=== PATIENT | female | born 1970 | race Caucasian/White ===

== ENCOUNTER 2020-07-12 09:54 | Observation (INO) ==
[2020-07-12] MEDS ORDERED: HYDROmorphone HCL 1 MG/ML DISP.SYRIN IV ONE ×2 (10:26→12:00)
[2020-07-12] MEDS ORDERED: diphenhydrAMINE HCL 50 MG/ML VIAL IV ONE (10:26)
[2020-07-12] MEDS ORDERED: METOCLOPRAMIDE HCL 5 MG/ML VIAL IV ONE (10:26)
--- NOTE | 2020-07-12 10:41 | ERNOTE ---
Upper Extremity HPI - Narrative Date of Service: 07/12/20 - General Extremities Pain Location: arm: right Time Seen by Provider: 07/12/20 10:13 Source: patient Exam Limitations: no limitations - Immun/Allergies/Home Medications Immunizations: IMMUNIZATION HX Immunizations Up to Date Yes History of Influenza Vaccine No Hx Pneumococcal Vaccination No Allergies/Adverse Reactions: Allergies Allergy/AdvReac Type Severity Reaction Status Date / Time ondansetron [From Zofran] Allergy Intermediate Hives Verified 07/12/20 10:04 morphine AdvReac Unknown Verified 07/12/20 10:04 Home Medications: HOME MEDICATIONS Aspirin [Aspirin EC] 81 mg PO DAILY 07/12/20 [Last Taken Unknown] HYDROcodone/ACETAMINOPHEN [[place] 10-325 Tablet] 1 ea PO Q4H PRN 07/12/20 [Last Taken Unknown] Lisinopril [Zestril] 10 mg PO DAILY 07/12/20 [Last Taken Unknown] glipiZIDE [Glipizide] 10 mg PO BID 07/12/20 [Last Taken Unknown] metFORMIN HCL [Metformin HCl] 1,000 mg PO BID 07/12/20 [Last Taken Unknown] - Pain Score Pain Score #1 Pain Score: 10 - History of Present Illness Narrative: The patient is a 49 year old female who presents for right upper extremity pain which has been present for several years but considerable worse over the past 2 weeks. There are associated symptoms of increased swelling and enlarged nodes. The patient reports pain to right arm, 10/10. There are no alleviating factors. There are aggravating factors of palpation and movement to right arm. Previous treatments have included: none. The past medical history includes: HTN, DM and breast cancer with metastatic disease and chronic lymphedema. The social history is positive for former smoker. The patient has had no known ill contacts. Patient states she has chronic lymphedema to right upper extremity and use a extremity pump to aid with swelling. Patient states that over the past 2 weeks her pain has been unmanaged with her chronic pain medication as well as having increased edema despite interventions. Patient has been here for over a month visiting her son who had a child. Patient states she has been having telemedicine visits with her PCP back home but has been unable to get back home due to her son's work schedule. Review of Systems - Review of Systems Constitutional: Present: chills, fatigue. Absent: fever EYE: Present: no symptoms reported ENT: Present: no symptoms reported. Absent: ear pain, nasal drainage, sore throat Respiratory: Present: shortness of breath, cough Cardiology: Present: no symptoms reported. Absent: chest pain Gastrointestinal/Abdominal: Present: nausea, eating less, drinking less. Absent: vomiting, diarrhea Genitourinary: Present: no symptoms reported. Absent: dysuria, decreased urinary output Musculoskeletal: Present: joint pain Skin: Present: no symptoms reported. Absent: rash Neurological: Present: weakness. Absent: headache, dizziness/light-headedness All Other Systems: All systems neg except as marked Medical History (Last Reviewed 07/12/20 @ 10:34 by WALLY Vallejo) Breast cancer Breast cancer metastasized to bone Diabetes mellitus Hypertension Surgical History: Surgical History (Last Reviewed 07/12/20 @ 10:34 by WALLY Vallejo) H/O bilateral mastectomy History of tonsillectomy and adenoidectomy Hx of cholecystectomy Family History: Family History (Last Reviewed 07/12/20 @ 10:34 by WALLY Vallejo) Father Hypertension Liver failure Mother Hypertension Social History: (Last Reviewed 07/12/20 @ 10:34 by WALLY Vallejo) Tobacco: Smoking Status: Former smoker Alcohol: alcohol intake: never Substance Use: substance use type: does not use Physical Exam - Physical Exam General Appearance: Present: wd/wn, alert, moderate distress Head Exam: Present: normal inspection, no evidence of injury Eye Exam: Normal inspection: bilateral Neck: Present: lymphadenopathy (R) - enlarged lymph nodes present to right anterior posterior chain and supraclavicular, firm, tender, tender lateral. Absent: lymphadenopathy (L) Respiratory: Present: no respiratory distress, normal breath sounds, no accessory muscle use, lungs clear Cardiovascular/Chest: Present: no murmur, normal peripheral pulses, tachycardia Peripheral Pulses: N=norm/S=strong/W=weak/B=bound/A=absent: Radial (R): Normal - right brachial normal Extremity Exam: Present: decreased range of motion, extremity edema - diffuse edema noted to right upper extremity Neurological Exam: Present: alert, oriented, normal mood/affect, motor weakness - right arm grasp and flexion, patient states is worse then normal but has difficulty associated with pain. 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 [facility] consulted for treatment plan. 07/12/20 12:45 Spoke with , [facility], will consult with vascular for direction of care. 07/12/20 13:11 states that after discussion of case with vascular they do not recommend surgical intervention but just anticoagulation therapy and pain management. It was reviewed with regarding weakness to RUE, exam findings as well as patient history of imaging studies. Discussed plan of care with patient and agrees to admission for management of pain as well as initiation of anticoagulation therapy. Case was reviewed with and requests to proceed with Lovenox Q12 hour dosing. Reviewed concern for metastatic progression due to findings of pleural effusion on xray. Patient is to follow up with her oncologist upon returning home. Also reviewed hyperglycemia but patient did not take am meds today due to nausea associated with pain. - Results and Orders Patient's Lab Results:: I have reviewed the patient's lab results. - Vital Signs Patient's Vital Signs:: I have reviewed the patient's vital signs. Vital Signs: Vital Signs 07/12/20 09:56 Temperature 36.1 C Pulse Rate 113 H Respiratory Rate 12 Blood Pressure 151/91 H O2 Sat by Pulse Oximetry 98 - X-Ray X-Ray #1 X-Ray: chest Interpretation: Reviewed by me X-ray Comments: IMPRESSION: 1. MILD RIGHT-SIDED VOLUME LOSS ASSOCIATED WITH SUBSEGMENTAL INFILTRATE/ATELECTASIS IN THE RIGHT LUNG BASE AND TRACE RIGHT-SIDED PLEURAL EFFUSION. 2. MULTIPLE POSTOPERATIVE CLIPS ALONG THE RIGHT CHEST WALL, CORRELATION NECESSARY. Electronically signed by Martinez Braxton MD. - CT/Ultrasound CT/Ultrasound Narrative: IMPRESSION: 1. Ultrasound evaluation of right upper extremity does show the presence of venous thrombosis throughout the visualized right internal jugular vein. 2. The right subclavian vein is small caliber but appears patent with color flow and Doppler flow. 3. Remaining venous structures within the right upper extremity appear patent without other areas of venous thrombosis. 4. Multiple enlarged and somewhat suspicious lymph nodes seen within the base of the neck on the right. Electronically signed by Martinez Braxton MD. - Progress/Reassessment Chief Complaint: Upper Extremity Injury/Problem Progress:: Improved Departure Clinical Impression: Lymphedema Internal jugular vein thrombosis Qualifiers: Laterality: right Qualified Code(s): I82.C11 - Acute embolism and thrombosis of right internal jugular vein Diabetes mellitus Qualifiers: Diabetes mellitus type: type 2 Diabetes mellitus predatory animal exterminator insulin use: without predatory animal exterminator use Diabetes mellitus complication status: with hyperglycemia Qualified Code(s): E11.65 - Type 2 diabetes mellitus with hyperglycemia Breast cancer Qualifiers: Breast location: unspecified site of breast Estrogen receptor status: unspecified Patient sex: female Laterality: bilateral Qualified Code(s): C50.911 - Malignant neoplasm of unspecified site of right female breast; C50.912 - Malignant neoplasm of unspecified site of left female breast - Departure Disposition: Still a patient Condition: Stable
[2020-07-12 10:53] LABS: Hematocrit 35.8 % (37.0-47.0); Hemoglobin 11.4 gm/dL (12.5-16.0); Mean Cell Volume 84.8 fl (78-100); Mean Corpuscular Hgb Conc 31.8 g/dl (32-36); Mean Platelet Volume 9.1 fl (8-12.5); Neutrophil # 6.7 K/mm3 (1.3-6.0); Neutrophil % 71.4 % (42-75.0); Platelet Count 337 K/mm3 (150-450); Red Blood Count 4.22 M/mm3 (4.2-5.4); Red Cell Distribution Width 13.8 % (11.5-14.0); White Blood Count 9.4 K/mm3 (4.0-10.5)
[2020-07-12 11:06] LABS: Albumin * 3.6 gm/dl (3.4-5.0); Anion Gap 16.8 mmol/L (6.8-13.8); BUN/Creatinine Ratio 18.9 (9.0-21.6); Bilirubin, Total 0.4 mg/dL (0.0-1.1); Ca. Corrected For Albumin 10.3 mg/dL (8.4-10.2); Calcium * 10.3 mg/dL (7.9-10.9); Carbon Dioxide 25.3 mmol/L (24-32.6); Potassium 4.1 mmol/L (3.4-4.6); Total Protein 8.2 gm/dL (6.2-8.2)
[2020-07-12] MEDS ORDERED: NORMAL SALINE 500 ML IV PRN (11:17)
[2020-07-12 12:39] LABS: Prothrombin Time (Patient) 10.3 Seconds (9.1-10.7)
[2020-07-12 12:56] LABS: INR 1.04 INR (0.92-1.08)
[2020-07-12] MEDS ORDERED: ENOXAPARIN SODIUM 100 MG/ML SYRG SC ONE (13:07)
[2020-07-12] MEDS ORDERED: glipiZIDE 10 MG TABLET PO ONE (13:26)
[2020-07-12] MEDS ORDERED: ACETAMINOPHEN 325 MG TABLET PO PRN (13:32)
[2020-07-12] MEDS ORDERED: HYDROmorphone HCL 1 MG/ML DISP.SYRIN IV PRN ×2 (13:34→17:21)
[2020-07-12] MEDS: glipiZIDE 10 MG TABLET PO SCH ×2 (14:39→20:43)
[2020-07-12] MEDS: ASPIRIN 81 MG TABLET.DR PO SCH (14:39)
[2020-07-12] MEDS: LISINOPRIL 10 MG TABLET PO SCH (14:40)
[2020-07-12] MEDS ORDERED: NORMAL SALINE 1,000 ML IV ONE (17:37)
--- NOTE | 2020-07-12 17:37 | HP ---
Chief Complaint - Chief Complaint Date of Service: 07/12/20 Time of Service: 17:22 Chief Complaint: I have right arm and neck pain History of Present Illness: 49-year-old female with past medical history of obesity, breast cancer, lymphedema, type 2 diabetes, hypertension, depression, was evaluated in our ER for worsening right arm pain and swelling of 2 weeks duration. Patient underwent a double mastectomy back in 2012 to treat breast cancer and developed subsequent complication of lymphedema of her upper extremities. Since then the patient has had chronic right upper extremity pain but she reports a week and a half ago her pain worsened and became unbearable. Patient currently lives in [place] but is in town visiting her son who just had a baby but has been following up with her PCP through telehealth, when her pain and swelling worsened he instructed her to go to the ER to be evaluated. Once in the ER the patient was found to have a blood clot in her right internal jugular vein which would explain her symptoms. The [facility] was contacted and they recommended keeping the patient here for anticoagulation and pain control. Since then the patient has been treated with Lovenox and is currently being treated with opioids to manage her pain. She denies any shortness of breath or chest pain at the moment. Patient was also found to have a positive depression screen but upon questioning she reports a long history of depression that she manages without medications. The patient denies being suicidal and says she is just sometimes depressed about her current condition. Medical History (Last Updated 07/12/20 @ 13:34 by Aliya Lehman RN) Asthma Breast cancer Breast cancer metastasized to bone Diabetes mellitus Hypertension Surgical History: Surgical History (Last Reviewed 07/12/20 @ 13:34 by Aliya Lehman RN) H/O bilateral mastectomy History of tonsillectomy and adenoidectomy Hx of cholecystectomy Family History: Family History (Last Reviewed 07/12/20 @ 13:34 by Aliya Lehman RN) Father Hypertension Liver failure Mother Hypertension Social History: (Last Reviewed 07/12/20 @ 13:35 by Aliya Lehman RN) Tobacco: Smoking Status: Former smoker Alcohol: alcohol intake: never Substance Use: substance use type: does not use Peds Patient Hx - Developmental: No Pertinent Hx Peds Patient Hx - Medical: No Pertinent Hx Peds Patient Hx - Cardiac/Respiratory: No Pertinent Hx Peds Patient Hx - Surgical: No Surgical History Patient History - Cancer: No Hx of Cancer Review Of Systems (GEN) - Review of Systems Generalized/Overall Review: Present: No Symptoms Reported EENTM: Present: No Symptoms Reported Respiratory: Present: No Symptoms Reported Cardiac: Present: No Symptoms Reported Abdominal: Present: No Symptoms Reported Genitourinary: Present: No Symptoms Reported Musculoskeletal: Present: Joint Pain - Right upper extremity pain and swelling Neurological: Present: Depressed Skin: Present: No Symptoms Reported Endocrine: Present: No Symptoms Reported Immunizations: IMMUNIZATION HX Immunizations Up to Date Yes History of Influenza Vaccine No Hx Pneumococcal Vaccination No Allergies/Adverse Reactions: Allergies Allergy/AdvReac Type Severity Reaction Status Date / Time ondansetron [From Zofran] Allergy Intermediate Hives Verified 07/12/20 10:04 morphine AdvReac Unknown Verified 07/12/20 10:04 Home Medications: HOME MEDICATIONS Aspirin [Aspirin EC] 81 mg PO DAILY 07/12/20 [Last Taken Unknown] HYDROcodone/ACETAMINOPHEN [[place] 10-325 Tablet] 1 ea PO Q4H PRN 07/12/20 [Last Taken Unknown] Lisinopril [Zestril] 10 mg PO DAILY 07/12/20 [Last Taken Unknown] glipiZIDE [Glipizide] 10 mg PO BID 07/12/20 [Last Taken Unknown] metFORMIN HCL [Metformin HCl] 1,000 mg PO BID 07/12/20 [Last Taken Unknown] Exam - Exam Vital Signs: Vital Signs - Last Taken Temp 36.6 C 07/12/20 14:18 Pulse 111 H 07/12/20 14:40 Resp 16 07/12/20 14:18 BP 167/91 H 07/12/20 14:40 Pulse Ox 97 07/12/20 14:18 Constitutional: Present: Oriented x3, Cooperative, Well developed, Well nourished, No distress, Morbidly obese ENT Exam: Present: normal ENT inspection, hearing grossly normal, pharynx normal, TMs normal Eye Exam: bilateral eye: normal inspection, PERRL, EOMI Neck: Present: non-tender, full range of motion, supple, normal inspection, trachea midline Back Exam: Present: normal inspection, no CVA tenderness, no vertebral tenderness Breasts: Present: Other - fully healed mastectomy scars bilaterally Respiratory: Present: chest non-tender, lungs clear, normal breath sounds, no respiratory distress, no accessory muscle use Cardiovascular/Chest: Present: normal peripheral pulses, regular rate, rhythm, no chest tenderness, no edema, no gallop, no JVD, no murmur, no rub Peripheral Pulses: carotid (R): 2+, carotid (L): 2+, femoral (R): 2+, femoral (L): 2+, dorsalis-pedis (R): 2+, dorsalis-pedis (L): 2+ Abdomen: Present: soft, nontender, nondistended, no rebound tenderness, no hepatospenomegaly, no masses, obese, hernia - Large ventral hernia on the right side of abdomen /Rectal: Present: Exam deferred Extremity: Present: no pedal edema, no calf tenderness, normal capillary refill, pelvis stable, swelling, other - Edema of right upper extremity with decreased range of motion and tenderness with palpation, worse on lateral aspect of right shoulder. Skin Exam: Present: normal color, warm/dry, no cyanosis Lymphatic: Present: no adenopathy Neurologic: Present: project development engineer II-XII nml as tested, normal cerebellar test, no motor/sensory deficits, alert, normal mood/affect, oriented x 3 Appearance: Present: appropriate appearance, appropriate insight, neat, no memory impairment Eye contact: Present: cooperative, good eye contact, normal speech Thoughts: Present: normal thought pattern, no apparent hallucination Diagnostic Studies: Abnormal Lab Results 07/12/20 07/12/20 07/12/20 Range/Units 10:45 10:45 10:45 Hgb 11.4 L (12.5-16.0) gm/dL Hct 35.8 L (37.0-47.0) % MCHC 31.8 L (32-36) g/dl Lymphocytes % 13.7 L (20-51) % Eosinophils % 8.0 H (0.0-3.0) % Neutrophils # 6.7 H (1.3-6.0) K/mm3 Lymphocytes # 1.28 L (1.5-3.5) k/mm3 Eosinophils # 0.8 H (0.0-0.7) k/mm3 PTT (Ross) 21.0 L (24-32) Seconds Sodium 130 L (132-142) mmol/L Chloride 92 L (97-106) mmol/L Anion Gap 16.8 H (6.8-13.8) mmol/L BUN 28 H (3-23) mg/dL Creatinine 1.48 H (0.4-1.4) mg/dL Est GFR (Non-Af Amer) 40 L (60-130) mL/min Random Glucose 482 H (70-110) mg/dL Calcium Adj for Albumin 10.3 H (8.4-10.2) mg/dL ALT 14 L (19-67) U/L C-Reactive Prot, Quant 5.0 H (0.0-0.9) mg/dL Laboratory Results WBC 9.4 K/mm3 (4.0-10.5) 07/12/20 10:45 RBC 4.22 M/mm3 (4.2-5.4) 07/12/20 10:45 Hgb 11.4 gm/dL (12.5-16.0) L 07/12/20 10:45 Hct 35.8 % (37.0-47.0) L 07/12/20 10:45 MCV 84.8 fl (78-100) 07/12/20 10:45 MCH 27.0 pg (27-31) 07/12/20 10:45 MCHC 31.8 g/dl (32-36) L 07/12/20 10:45 RDW 13.8 % (11.5-14.0) 07/12/20 10:45 Plt Count 337 K/mm3 (150-450) 07/12/20 10:45 MPV 9.1 fl (8-12.5) 07/12/20 10:45 Immature Gran % (Auto) 0.30 % (0.001-0.429) 07/12/20 10:45 Immature Gran # (Auto) 0.03 K/mm3 (0.000-0.0310) 07/12/20 10:45 Neutrophils % 71.4 % (42-75.0) 07/12/20 10:45 Lymphocytes % 13.7 % (20-51) L 07/12/20 10:45 Monocytes % 6.2 % (0.0-9) 07/12/20 10:45 Eosinophils % 8.0 % (0.0-3.0) H 07/12/20 10:45 Basophils % 0.4 % (0.0-1.0) 07/12/20 10:45 Nucleated RBC % 0.0 k/mm3 (0-1) 07/12/20 10:45 Neutrophils # 6.7 K/mm3 (1.3-6.0) H 07/12/20 10:45 Lymphocytes # 1.28 k/mm3 (1.5-3.5) L 07/12/20 10:45 Monocytes # 0.6 k/mm3 (0.0-1.0) 07/12/20 10:45 Eosinophils # 0.8 k/mm3 (0.0-0.7) H 07/12/20 10:45 Absolute Basophils 0.0 k/mm3 (0.0-0.1) 07/12/20 10:45 PT 10.3 Seconds (9.1-10.7) 07/12/20 10:45 INR (Anticoag Therapy) 1.04 INR (0.92-1.08) 07/12/20 10:45 PTT (Ross) 21.0 Seconds (24-32) L 07/12/20 10:45 Sodium 130 mmol/L (132-142) L 07/12/20 10:45 Plasma Sodium 136 mmol/L (130-142) 07/12/20 10:45 Potassium 4.1 mmol/L (3.4-4.6) 07/12/20 10:45 Chloride 92 mmol/L (97-106) L 07/12/20 10:45 Carbon Dioxide 25.3 mmol/L (24-32.6) 07/12/20 10:45 Anion Gap 16.8 mmol/L (6.8-13.8) H 07/12/20 10:45 BUN 28 mg/dL (3-23) H 07/12/20 10:45 Creatinine 1.48 mg/dL (0.4-1.4) H 07/12/20 10:45 Est GFR (Non-Af Amer) 40 mL/min (60-130) L 07/12/20 10:45 BUN/Creatinine Ratio 18.9 (9.0-21.6) 07/12/20 10:45 Random Glucose 482 mg/dL (70-110) H 07/12/20 10:45 Calcium 10.3 mg/dL (7.9-10.9) 07/12/20 10:45 Calcium Adj for Albumin 10.3 mg/dL (8.4-10.2) H 07/12/20 10:45 Total Bilirubin 0.4 mg/dL (0.0-1.1) 07/12/20 10:45 AST 12 U/L (0-48) 07/12/20 10:45 ALT 14 U/L (19-67) L 07/12/20 10:45 Alkaline Phosphatase 130 U/L (50-170) 07/12/20 10:45 C-Reactive Prot, Quant 5.0 mg/dL (0.0-0.9) H 07/12/20 10:45 Total Protein 8.2 gm/dL (6.2-8.2) 07/12/20 10:45 Albumin 3.6 gm/dl (3.4-5.0) 07/12/20 10:45 SARS-CoV-2 (PCR) Not detected (NotDetected) 07/12/20 15:24 Assessment/Plan - Narrative Narrative: Patient was evaluated medical chart was reviewed and decision to admit to [facility] for observation for diagnosis of thromboembolism of right internal jugular vein and lymphedema of right upper extremity. She is currently being treated with pain medications to manage her pain in her right upper extremity and shoulders and she is being anticoagulated with Lovenox as recommended by the [facility]. All of the patient's routine medications have been resumed. Tomorrow morning we will discuss treatment options for ongoing anticoagulation before possibly discharging her. - Assessment/Plan (1) Internal jugular vein thrombosis Problem: Acute Qualifiers: Laterality: right Qualified Code(s): I82.C11 - Acute embolism and thrombosis of right internal jugular vein (2) Diabetes mellitus Problem: Chronic Qualifiers: Diabetes mellitus type: type 2 Diabetes mellitus longterm insulin use: without terminal press operator use Diabetes mellitus complication status: with hyperglycemia Qualified Code(s): E11.65 - Type 2 diabetes mellitus with hyperglycemia (3) Lymphedema Problem: Chronic (4) Breast cancer Problem: Chronic Qualifiers: Breast location: unspecified site of breast Estrogen receptor status: unspecified Patient sex: female Laterality: bilateral Qualified Code(s): C50.911 - Malignant neoplasm of unspecified site of right female breast; C50.912 - Malignant neoplasm of unspecified site of left female breast (5) Depression Problem: Chronic
[2020-07-12] MEDS: HYDROcodone/ACETAMINOPHEN 1 EACH TABLET PO PRN (19:43)
[2020-07-12] MEDS: PANTOPRAZOLE SODIUM 20 MG TABLET.DR PO SCH (20:44)
[2020-07-13] MEDS: HYDROcodone/ACETAMINOPHEN 1 EACH TABLET PO PRN ×3 (00:58→13:31)
[2020-07-13] MEDS: ENOXAPARIN SODIUM 40 MG/0.4 ML SYRG SC SCH ×2 (01:27→14:19)
[2020-07-13] MEDS: PANTOPRAZOLE SODIUM 20 MG TABLET.DR PO SCH (06:46)
[2020-07-13 07:45] LABS: Anion Gap 14.2 mmol/L (6.8-13.8); BUN/Creatinine Ratio 21.4 (9.0-21.6); Bilirubin, Total 0.3 mg/dL (0.0-1.1); Ca. Corrected For Albumin 9.4 mg/dL (8.4-10.2); Calcium * 8.9 mg/dL (7.9-10.9); Carbon Dioxide 25.8 mmol/L (24-32.6); Total Protein 6.2 gm/dL (6.2-8.2)
[2020-07-13] MEDS: LISINOPRIL 10 MG TABLET PO SCH (08:10)
[2020-07-13] MEDS: ASPIRIN 81 MG TABLET.DR PO SCH (08:10)
[2020-07-13] MEDS: glipiZIDE 10 MG TABLET PO SCH (08:10)
[2020-07-13] MEDS ORDERED: amLODIPine BESYLATE 10 MG TABLET PO ONE (09:16)
--- NOTE | 2020-07-13 09:36 | DS ---
(1) Internal jugular vein thrombosis Problem: Acute Qualifiers: Laterality: right Qualified Code(s): I82.C11 - Acute embolism and thrombosis of right internal jugular vein (2) Diabetes mellitus Problem: Chronic Qualifiers: Diabetes mellitus type: type 2 Diabetes mellitus assisted insulin use: without termite treater helper use Diabetes mellitus complication status: with h yperglycemia Qualified Code(s): E11.65 - Type 2 diabetes mellitus with hyperglycemia (3) Lymphedema Problem: Chronic (4) Breast cancer Problem: Chronic Qualifiers: Breast location: unspecified site of breast Estrogen receptor status: unspecified Patient sex: female Laterality: bilateral Qualified Code(s): C50.911 - Malignant neoplasm of unspecified site of right female breast; C50.912 - Malignant neoplasm of unspecified site of left female breast (5) Depression Problem: Chronic (6) Pain and swelling of right upper extremity Problem: Acute Date of Discharge:: 07/13/20 Hospital Course: 49-year-old female admitted for right internal jugular vein thromboembolism, lymphedema of the right upper extremity, and pain and swelling of right upper extremity was evaluated at bedside this morning and was found to be afebrile and in no acute distress. Patient was kept overnight for observation and treatment of VTE of the right upper extremity and for pain management. After trying multiple different pain medications the patient finally reports an improvement in the pain although she says she has a residual gnawing in the right shoulder, she was instructed to apply heating pad on a as needed basis when she is home. She was also treated with Lovenox at therapeutic levels which she tolerated without any issues, she will be discharged with additional days of p.o. Eliquis for additional anticoagulation. She will have to complete 12 weeks per the guidelines. OT was consulted this morning for evaluation and treatment for the impairment of the function of her right upper extremity before sending her home. After we get the recommendations from OT, we will discharge patient home with additional days of p.o. pain meds. She was given strict instructions to follow-up with her PCP in the next several days and was instructed to return to the ER if she were to develop shortness of breath chest pain or worsening of her symptoms. Procedures Performed: none Results and Findings: Lab Pending Results 07/12/20 10:45: WBC 9.4, RBC 4.22, Hgb 11.4 L, Hct 35.8 L, MCV 84.8, MCH 27.0, MCHC 31.8 L, RDW 13.8, Plt Count 337, MPV 9.1, Immature Gran % (Auto) 0.30, Immature Gran # (Auto) 0.03, Neutrophils % 71.4, Lymphocytes % 13.7 L, Monocytes % 6.2, Eosinophils % 8.0 H, Basophils % 0.4, Nucleated RBC % 0.0, Neutrophils # 6.7 H, Lymphocytes # 1.28 L, Monocytes # 0.6, Eosinophils # 0.8 H, Absolute Basophils 0.0 07/12/20 10:45: Sodium 130 L, Plasma Sodium 136, Potassium 4.1, Chloride 92 L, Carbon Dioxide 25.3, Anion Gap 16.8 H, BUN 28 H, Creatinine 1.48 H, Est GFR (Non-Af Amer) 40 L, BUN/Creatinine Ratio 18.9, Random Glucose 482 H, Calcium 10.3, Calcium Adj for Albumin 10.3 H, Total Bilirubin 0.4, AST 12, ALT 14 L, Alkaline Phosphatase 130, C-Reactive Prot, Quant 5.0 H, Total Protein 8.2, Albumin 3.6 07/12/20 10:45: PT 10.3, INR (Anticoag Therapy) 1.04, PTT ([place]) 21.0 L 07/12/20 15:24: SARS-CoV-2 (PCR) Not detected 07/13/20 06:10: Sodium 138, Plasma Sodium 139, Potassium 4.0, Chloride 102, Carbon Dioxide 25.8, Anion Gap 14.2 H, BUN 30 H, Creatinine 1.40, Est GFR (Non- Af Amer) 42 L, BUN/Creatinine Ratio 21.4, Random Glucose 179 H D, Calcium 8.9, Calcium Adj for Albumin 9.4, Total Bilirubin 0.3, AST 11, ALT 15 L, Alkaline Phosphatase 113, Total Protein 6.2, Albumin 3.0 L Discharge Location: Home Disposition: Home self-care Condition: Stable Face to Face Encounter completed per CMS Guidelines: No Discharge Activity: Activity as tolerated Discharge Diet: Consistent carbs Prescriptions (Any new or edited meds): Apixaban [Eliquis] 5 mg PO BID 77 Days #77 tab Transmission Status: Pending to [id number] Apixaban [Eliquis] 10 mg PO BID #7 tab Transmission Status: Pending to [id number] Lisinopril [Zestril] 20 mg PO DAILY #30 Complete Home Medications List: Complete Home Medication List: Aspirin [Aspirin EC] 81 mg PO DAILY 07/12/20 HYDROcodone/ACETAMINOPHEN [[place] 10-325 Tablet] 1 ea PO Q4H PRN 07/12/20 glipiZIDE [Glipizide] 10 mg PO BID 07/12/20 metFORMIN HCL [Metformin HCl] 1,000 mg PO BID 07/12/20 Apixaban [Eliquis] 5 mg PO BID 77 Days #77 tab 07/13/20 Apixaban [Eliquis] 10 mg PO BID #7 tab 07/13/20 Lisinopril [Zestril] 20 mg PO DAILY #30 07/13/20
[2020-07-13] MEDS ORDERED: ENOXAPARIN SODIUM 100 MG/ML SYRG SC SCH (14:15)
[2020-07-13 16:11] VITALS: BP 154/75
== END 2020-07-13 16:00 | disposition home or self-care (01) ==
LOC: ER 09:54 → MS 09:54
PROVIDERS: ADMIT Family Medicine; ATTEND Family Medicine
DX: Z87.891 Personal history of nicotine dependence; I10 Essential (primary) hypertension; C50.911 Malignant neoplasm of unspecified site of right female breast; E11.65 Type 2 diabetes mellitus with hyperglycemia; C79.51 Secondary malignant neoplasm of bone; I82.C11 Acute embolism and thrombosis of right internal jugular vein; Z79.84 Long term (current) use of oral hypoglycemic drugs